=== PATIENT | male | born 1965 | race Caucasian/White ===

== ENCOUNTER → 2019-06-14 | Day surgery (SDC) | payer OTHER ==
[2019-06-11 15:15] LABS: BASOPHILS % 0.4 % (0.0-1.0); EOSINOPHILS % 0.4 % (0.0-6.0); HEMATOCRIT 42.7 % (38.2-49.6); HEMOGLOBIN 14.6 g/dL (14.0-18.0); LYMPHOCYTES % 9.8 % (18.0-39.1); MEAN CORPUSCULAR HEMOGLOBIN 29.3 pg (28-32); MEAN CORPUSCULAR HGB CONC 34.2 g/dL (31-35); MEAN CORPUSCULAR VOLUME 85.6 fL (81-99); MONOCYTES % 9.3 % (4.4-11.3); NEUTROPHILS # (AUTO) 8.2 (2.1-6.9); NEUTROPHILS % 79.8 % (38.7-80.0); PLATELET COUNT 225 x10e3/uL (140-360); RED BLOOD COUNT 4.99 x10e6/uL (4.3-5.7); RED CELL DISTRIBUTION WIDTH 12.3 % (11.7-14.4)
[2019-06-11 15:36] LABS: ALBUMIN 3.5 g/dL (3.5-5.0); ALBUMIN/GLOBULIN RATIO 0.9 (0.8-2.0); ANION GAP 16.4 mmol/L (8-16); CALCIUM 9.6 mg/dL (8.4-10.2); CREATININE, SERUM 1.78 mg/dL (0.72-1.25); POTASSIUM 4.4 mmol/L (3.5-5.1)
[~2019-06-14] MED LIST: AMLODIPINE BESY10 MG PO; ATORVASTATIN CA20 MG PO; B&O 60MG R/S 60 MG SUPP PR ONE; CEFTRIAXONE SOD 1 GM/NS 50 ML 50 ML IV ONE; CIPRO500 MG PO; DEXAMETHASONE SOD PHOS INJ 4 MG/ML VIAL ONE; DOCUSATE SODIU100 MG PO; FAMOTIDINE20 MG PO; FENTANYL CITRATE/PF 100MCG/2 ML INJ ONE; FLOMAX0.4 MG PO; IOPAMIDOL 300MG/ML 50ML INFUS..BTL IV ONE; KETOROLAC15 MG/1 ML PO; LATANOPROST2.5 ML OP; LIDOCAINE HCL 2% LOCAL INJ 5 ML SDV VIAL INJ ONE; MYRBETRIQ25 MG PO; NORCO 7.5-3251 EACH PO; ONDANSETRON HCL INJ 2MG/ML 2ML 2 MG/ML VIAL ONE; PROPOFOL IV EMULSION 10 MG/ML 20 ML VIAL ONE; SEVOFLURANE INHAL SOLN 250 ML PEN BTL ONE; TYLENOL #4 PO; ZOFRAN4 MG PO
--- OUTSIDE RECORDS SUMMARY | 2019-06-14 05:49 | XMS REPORT ---
Author Author [facility] Address Unknown Phone Unavailable Care Team Providers Care Greeter Guest Services Name Role Phone Unavailable Unavailable Problems This patient has no known problems. Allergies, Adverse Reactions, Alerts This patient has no known allergies or adverse reactions. Medications This patient has no known medications.
[2019-06-14 09:25] VITALS: BP 135/88
--- NOTE | 2019-07-20 23:16 | Operative Report ---
DATE OF PROCEDURE: 06/14/2019 SURGEON: Horace Agudelo MD PREOPERATIVE DIAGNOSES: 1. Left ureterolithiasis. 2. Left hydronephrosis. 3. Acute renal failure. 4. Microhematuria. POSTOPERATIVE DIAGNOSES: 1. Left ureterolithiasis. 2. Left ureteral stricture. 3. Left hydronephrosis due to stricture. 4. Left hydronephrosis due to ureterolithiasis. 5. Presumably acute renal failure. 6. Microhematuria. OPERATIONS PERFORMED: 1. Cystourethroscopy with bilateral ureteral catheterization and retrograde ureteropyelography (separate procedure performed for renal failure and microhematuria). 2. Interpretation of retrograde ureteropyelography. 3. Supervision of fluoroscopy, no radiologist present. 4. Left ureteroscopy with dilation of ureteral stricture (separate procedure performed for the diagnosis of stricture). 5. Left ureteroscopy with stone manipulation (separate procedure performed for the left ureterolithiasis). 6. Radiological services with supervision and interpretation of ureteroscopy. 7. Cystourethroscopy with insertion of left indwelling ureteral stent (separate procedure performed to relieve the hydronephrosis). ANESTHESIA: General. COMPLICATIONS: None. CLINICAL SUMMARY: Julio Wilburn is a 53-year-old man with left ureterolithiasis. He has an elevation of creatinine to 1.78. The patient is brought to the operating room for the above procedures. He is aware of the risks of bleeding, infection, injury to adjacent structures, need for additional procedures, and elected to proceed. OPERATIVE PROCEDURE IN DETAIL: Informed consent was verified. Julio Wilburn was properly identified, taken to the operating room, placed on the cystoscopy table in supine position. Anesthesia was uneventfully begun. The patient was then carefully and gently repositioned in the dorsal lithotomy position with all pressure points well padded. His genitalia were prepared and draped in usual sterile fashion. The cystoscope sheath with the visual obturator in place was atraumatically inserted into the patient's urethra, was guided unremarkable distal urethra through the normal sphincteric region, through the prostate bed, which was significant for early BPH and into the patient's bladder. Panendoscopy revealed no suspicious mucosal lesions, no tumors, no stones, no diverticula. Normally positioned configured ureteral orifices were identified. An 8-Urdu catheter was used to cannulate each ureter and retrograde ureteropyelography was performed. A guidewire was then placed in the left ureter and guided to the level of the patient's kidney. A semi-rigid ureteroscope was then placed along side the guidewire and was guided into the patient's distal left ureter. We identified a narrowing of the ureter as it coursed through the proximal portion of the intramural ureter. We gently dilated across the lesion with the semi-rigid ureteroscope, thus dilating the stricture. There was a stone that was noted that the stone was small and was flushed out from the left ureter by the ureteroscope. With cystoscopic and fluoroscopic guidance, a left-sided indwelling ureteral stent was then placed, it was coiled in the patient's kidneys as well as the bladder. The retaining suture was cut short. Interpretation of retrograde ureteropyelography contrast was instilled in retrograde fashion bilaterally. The right side was unremarkable. There were no tumors, no stones, no diverticula. Unobstructed drainage was observed fluoroscopically. The left hand side exhibited hydroureteronephrosis and extravasation at the level of the kidney consistent with a forniceal leak. The stent was in good position, coiled the patient's kidneys as well as the patient's bladder at the end of the case. The patient's bladder was drained and cystoscope was withdrawn. Belladonna and opium suppository were placed revealing a 30 g prostate, that is smooth, non-fluctuant without any nodules. The patient was then uneventfully reversed from anesthesia and taken to recovery room in stable condition. No complications to the procedure and he tolerated the procedure well. Plans will be to return the patient to the operating room after several weeks to remove his stents for left ureteroscopy and hopefully render the patient stent free and stone free. Ongoing urological followup for metabolic stone workup as well as stone prevention regimen is a must. Horace MD Jammie [place]/PHOEBE /[id number]
== END | disposition home or self-care (01) ==
LOC: OR 05:43
PROVIDERS: ATTEND Urology
DX: N13.2 Hydronephrosis with renal and ureteral calculous obstruction (principal); N13.1 Hydronephrosis with ureteral stricture, not elsewhere classified; N40.0 Benign prostatic hyperplasia without lower urinary tract symptoms; R35.1 Nocturia; I10 Essential (primary) hypertension; K21.9 Gastro-esophageal reflux disease without esophagitis; Z88.8 Allergy status to other drugs, medicaments and biological substances; Z01.810 Encounter for preprocedural cardiovascular examination; Z01.812 Encounter for preprocedural laboratory examination
CPT/HCPCS: 36415; 74420; 80053; 83970; 84550; 85025; 88300; 93005; C1758; C1766; C1769; C2617; J0696; J1100; J2001; J2405; J3010

== ENCOUNTER → 2019-07-10 | Day surgery (SDC) | payer OTHER ==
[2019-07-09 14:44] LABS: BASOPHILS # (AUTO) 0.1 (0.0-0.1); BASOPHILS % 0.8 % (0.0-1.0); EOSINOPHILS # (AUTO) 0.1 (0.0-0.4); EOSINOPHILS % 1.5 % (0.0-6.0); HEMATOCRIT 41.1 % (38.2-49.6); HEMOGLOBIN 14.1 g/dL (14.0-18.0); LYMPHOCYTES # (AUTO) 1.5 (1.0-3.2); LYMPHOCYTES % 25.2 % (18.0-39.1); MEAN CORPUSCULAR HEMOGLOBIN 29.4 pg (28-32); MEAN CORPUSCULAR HGB CONC 34.3 g/dL (31-35); MEAN CORPUSCULAR VOLUME 85.6 fL (81-99); MONOCYTES # (AUTO) 0.6 (0.2-0.8); MONOCYTES % 9.8 % (4.4-11.3); NEUTROPHILS # (AUTO) 3.8 (2.1-6.9); NEUTROPHILS % 62.5 % (38.7-80.0); PLATELET COUNT 210 x10e3/uL (140-360); RED CELL DISTRIBUTION WIDTH 12.8 % (11.7-14.4)
[2019-07-09 15:00] LABS: ALBUMIN 4.1 g/dL (3.5-5.0); ALBUMIN/GLOBULIN RATIO 1.2 (0.8-2.0); ANION GAP 9.1 mmol/L (8-16); CALCIUM 9.3 mg/dL (8.4-10.2); CREATININE, SERUM 1.27 mg/dL (0.72-1.25); POTASSIUM 4.1 mmol/L (3.5-5.1)
--- NOTE | 2019-07-09 15:43 | Diagnostic Imaging Report ---
Exam: KUB - 2 views Indication: Preoperative Comparison: Retrograde pyelogram of 06/14/2019 Findings: Left internal nephroureteral stent in place. No radiographically apparent renal calculi. Phlebolith in the left pelvis. No acute osseous injury. Nonobstructive bowel gas pattern. No free air. Impression: Left internal nephroureteral stent in place. No radiographically apparent renal calculi. Signed by: Karin Andersen MD on 07/09/2019 3:40 PM
[~2019-07-10] MED LIST changes: +FAMOTIDINE 20 MG/2 ML VIAL IV ONE; +MIDAZOLAM HCL 2 MG/2 ML VIAL ONE
[2019-07-10 12:30] VITALS: BP 131/80
--- NOTE | 2019-07-10 19:13 | Operative Report ---
DATE OF PROCEDURE: 07/10/2019 SURGEON: Horace Agudelo MD PREOPERATIVE DIAGNOSES: 1. Left nephrolithiasis. 2. Left indwelling ureteral stent. POSTOPERATIVE DIAGNOSES: 1. Left nephrolithiasis. 2. Left indwelling ureteral stent. OPERATIONS PERFORMED: 1. Cystourethroscopy with complicated removal of left indwelling ureteral stent (separate procedure performed for the diagnosis of the stent done with separate scope). 2. Left ureteroscopy with stone manipulation (separate procedure performed for the left nephrolithiasis). 3. Radiological services for supervision and interpretation of ureteroscopy. 4. Interpretation of retrograde ureteropyelography. 5. Supervision of fluoroscopy, no radiologist present. ANESTHESIA: General. COMPLICATIONS: None. CLINICAL SUMMARY: Julio Wilburn is a 53-year-old man with urolithiasis. He had a left ureteroscopy with ureteral stricture dilation. He has history of nephrolithiasis. He is brought for the above procedure. He is aware of the risks of bleeding, infection, injury to adjacent structures, need for additional procedures and elected to proceed. OPERATIVE PROCEDURE IN DETAIL: Informed consent was verified. Julio Wilburn was properly identified, taken to the operating room, placed on the cystoscopy table in supine position. Anesthesia was uneventfully begun. The patient was then carefully gently repositioned in dorsal lithotomy position with all pressure points well padded. His genitalia were prepared and draped in usual sterile fashion. The cystoscope sheath with the visual obturator in place was atraumatically inserted. The patient's urethra was guided, unremarkable distal urethra through the normal sphincteric region through the prostate bed, which was significant for early BPH. There was slight elevation of the median bar, went to the patient's bladder and drained it. Panendoscopy revealed some sand in the vicinity of the left ureteral orifice near the stent. There were no suspicious lesions. There were no large stones. A guidewire was then placed alongside the stent and guided to the level of the patient's kidney. The stent was then grasped, completely removed and discarded. Semi-rigid ureteroscope was then placed alongside the guidewire and guided into the left ureter into the midportion of it. There were no stones and no suspicious lesions identified. Flexible ureteroscope was then brought up over the guidewire and guided to the level of the patient's kidney. Panendoscopy revealed Travis's plaques throughout. There was sand within the kidney. There was one small stone in the lower pole. The stone was grasped with Nitinol tipless basket and extracted atraumatically. No additional significantly sized stones fragments remained. We examined the ureter as we exited, it exhibited no stones, but only fine sand remained. This sand that we observed in the kidney, ureter was irrigated to loosen it from the mucosa. The careful examination of the ureter also relieved that the previous ureteral stricture no longer was present. Interpretation of retrograde ureteropyelography contrast was instilled in a retrograde fashion on the left hand side. There was some fullness of the left kidney, but I could not visualize any filling defects. There were no suspicious lesions. Unobstructed drainage was observed fluoroscopically. The patient's bladder was drained. Cystoscope was withdrawn. Belladonna and opium suppository were placed revealing a 30 g prostate, smooth and non-fluctuant without any nodules. The patient was then uneventfully reversed from anesthesia and taken to recovery room in stable condition. There were no complications to the procedure. He tolerated the procedure well. Explicit postop instructions were given. We will follow the patient up in the office following his followup. We will pursue metabolic stone workup with 24 hour urine test and of course we will monitor the patient and follow him on an indefinite basis. Horace Agudelo MD [place]/MODL /[id number]
== END | disposition home or self-care (01) ==
LOC: OR 09:04
PROVIDERS: ATTEND Urology
DX: N20.1 Calculus of ureter (principal); N13.30 Unspecified hydronephrosis; R31.29 Other microscopic hematuria; R35.1 Nocturia; Z84.1 Family history of disorders of kidney and ureter; Z96.0 Presence of urogenital implants; K21.9 Gastro-esophageal reflux disease without esophagitis; I10 Essential (primary) hypertension; E78.00 Pure hypercholesterolemia, unspecified; N40.0 Benign prostatic hyperplasia without lower urinary tract symptoms
CPT/HCPCS: 36415; 52352; 74018; 74420; 80053; 83970; 84550; 85025; 88300; 93005; C1769; J0696; J1100; J2001; J2250; J2405; J2704; J3010; Q9967